=== PATIENT | female | born 1995 | race Caucasian/White ===

== ENCOUNTER 2021-03-31 11:28 | Observation (INO) | payer OTHER, SELFPAY ==
[2021-03-31] VITALS (12 sets, daily range): BP systolic 125–158; BP diastolic 68–102; PULSE 82–112; RESP 14–18; TEMP 36.2–37.1; O2SAT 98–100
--- NOTE | ~2021-03-31 | XR_ITS ---
EXAMINATION: XR chest 1V portable DATE: 03/31/2021 12:20 INDICATION: Syncope. TECHNIQUE: A single frontal view of the chest was obtained. COMPARISON: None. FINDINGS: The chest demonstrates clear lungs without pneumonia, pleural effusion, or pneumothorax. Th e heart size is normal. IMPRESSION: 1. No acute cardiopulmonary disease. Reviewed, dictated and finalized at location A.
--- NOTE | ~2021-03-31 | US_ITS ---
EXAMINATION: US carotid duplex BI EXAM DATE: 04/01/2021 12:09 INDICATION: Syncope, dizziness. TECHNIQUE: Grayscale, color and pulsed Doppler images of the cervical carotid arteries were obtained . The degree of vessel stenosis is placed in one of the following categories: normal, <50% stenosis, 50-69% stenosis, >=70% stenosis but less than near-occlusion, near-occlusion, or occlusion. Note that percent stenosis relative to normal distal artery lumen diameter is indirectly measured from velocit y measurements as described by Emanuel, et al. Radiology 2003; 229:340-346. There is no prior study fo r comparison. FINDINGS: RIGHT SIDE: Right common carotid artery peak systolic velocity (PSV in cm/s): 107 Right bulb/internal carotid artery peak systolic velocity (PSV in cm/s): 132 Right internal carotid artery end diastolic velocity (EDV in cm/s): 73 Right ICA/CCA peak systolic ratio: 1.2 Right external carotid artery peak systolic velocity (PSV in cm/s): 112 Right vertebral artery antegrade flow: yes There is no focal plaque identified. LEFT SIDE: Left common carotid artery peak systolic velocity (PSV in cm/s): 100 Left bulb/internal carotid artery peak systolic velocity (PSV in cm/s): 118 Left internal carotid artery end diastolic velocity (EDV in cm/s): 63 Left ICA/CCA peak systolic ratio: 1.2 Left external carotid artery peak systolic velocity (PSV in cm/s): 104 Left vertebral artery antegrade flow: yes There is no focal plaque identified. IMPRESSION: 1. Normal right internal carotid artery. 2. Normal left internal carotid artery. > Reviewed, dictated and finalized at location A.
--- NOTE | ~2021-03-31 | CT_ITS ---
EXAMINATION: CT brain wo con DATE: 03/31/2021 12:33 INDICATION: Unresponsive. Dizziness. TECHNIQUE: Computed tomography (CT) of the head was performed without intravenous contrast. The mA wa s adjusted according to patient size. Iterative reconstruction technique was employed. The dose-lengt h product was 681.00 mGy-cm. COMPARISON: None FINDINGS: There is no intracranial hemorrhage, acute infarction, or abnormal intracranial mass lesion . The ventricles are normal in size. There is mild mucosal thickening in the paranasal sinuses. The m astoid air cells are normal. The orbits are normal. IMPRESSION: 1. Normal brain. Reviewed, dictated and finalized at location A. IMPRESSION: 1. Normal brain.
--- NOTE | 2021-03-31 11:33 | ECG_ITS ---
Measurements Intervals [place] Rate: 79 P: 41 RI: 132 QRS: 15 QRSD: 82 T: 49 QT: 360 QTc: 414 Interpretive Statements SINUS RHYTHM WITH SINUS ARRHYTHMIA MINIMAL Q WAVES- HIGH LATERAL LEADS BORDERLINE ECG Electronically Signed On 03-31-2021 15:54:31 CDT by Gómez Moreno D.O.
--- NOTE | 2021-03-31 11:44 | PC.NURSE ---
patient declines IV placement at this time, patient request no IV unless absolutely necessary.
--- NOTE | 2021-03-31 12:17 | ED.GENADULT ---
HPI - General Adult General Chief complaint: Unspecified Stated complaint: unresponsive Time Seen by Provider: 03/31/21 12:03 Source: RN notes reviewed History of Present Illness HPI narrative: Patient presents emergency department from home for syncopal episode. Patient was sitting at work when she states she began to feel dizzy like the room was spinning states at that time she felt she is got passed out she took her pulse and was approximately 160 she states she sat on the floor and then per staff at her work she had approximately 5 to 6 minutes of going in and out of consciousness. Patient states that during this time she had no chest pain or shortness of breath she states she feels better this time but just feels tired she denies any current dizziness or lightheadedness she denies any abdominal pain nausea vomiting. Patient states she did have episodes of passing approximately 5 years ago and had a positive tilt table test at that time Related Data Home Medications Medication Instructions Recorded Confirmed bupropion HCl 300 mg PO QAM 03/31/21 03/31/21 Allergies Allergy/AdvReac Type Severity Reaction Status Date / Time cephalexin [From Keflex] Allergy Swelling Verified 03/31/21 11:31 of Lip/Tongue/Throat Review of Systems Review of Systems: Narrative: Gen.: Denies fevers or chills Eyes: Denies eye pain or visual change ENT: Denies congestion Respiratory: Denies shortness of breath CV: Denies chest pain reports palpitations and syncope GI: Denies abdominal pain nausea, emesis or diarrhea denies burning, urgency, frequency or hematuria Musculoskeletal: Denies back pain or muscle pain Neuro: Reports dizziness Skin: Denies rash Except as documented, all other systems reviewed and negative [facility] Past Medical History Medical History (Updated 03/31/21 @ 14:47 by Constantine Quiñonez DO) Patient denies significant medical history Social History Social History (Updated 03/31/21 @ 12:18 by Constantine Quiñonez DO) Smoking status: Never smoker Exam Narrative: Exam Narrative: APPEARANCE: No acute distress, nontoxic, resting in bed EYES: EOMI HEENT: Normocephalic, atraumatic, OMM RESPIRATORY: No respiratory distress Clear to auscultation bilaterally with no rhonchi wheezing or rales. CARDIOVASCULAR: Regular rate and rhythm without murmurs rubs or gallops. ABDOMINAL: Soft, nontender, nondistended, no rebound or guarding MUSCULOSKELETAl: Moves all extremities. No clubbing, cyanosis or edema. NEURO: Awake and alert x 4. Following commands, speech normal, no focal deficits SKIN:: Warm, dry. No rashes lesions or abrasions PSYCHIATRIC: Normal affect/mood, Course Course Emergency Course: Discussed with Lilian for Dr. Rush. Recommends admission at this time with cardiology consult Discussed with YOVANA Grover for Dr. Crooks presentation work-up agrees with admission at this time Discussed with patient and family results of workup and diagnosis. Discussed need for admission. Patient and family understand and agree to current treatment plan Vital Signs Vital signs: Vital Signs Temperature 97.8 F 03/31/21 11:26 Pulse Rate 90 03/31/21 11:26 Respiratory Rate 03/31/21 11:26 Blood Pressure 158/94 H 03/31/21 11:26 Pulse Oximetry 100 03/31/21 11:26 Temperature 97.8 F 03/31/21 11:26 Pulse Rate 85 03/31/21 14:36 Respiratory Rate 03/31/21 14:36 Blood Pressure 138/86 03/31/21 14:36 Pulse Oximetry 99 03/31/21 14:36 Medical Decision Making Vital Signs Vital Signs: Vital Signs Temperature 97.8 F 03/31/21 11:26 Pulse Rate 90 03/31/21 11:26 Respiratory Rate 03/31/21 11:26 Blood Pressure 158/94 H 03/31/21 11:26 Pulse Oximetry 100 03/31/21 11:26 Temperature 97.8 F 03/31/21 11:26 Pulse Rate 85 03/31/21 14:36 Respiratory Rate 03/31/21 14:36 Blood Pressure 138/86 03/31/21 14:36 Pulse Oximetry 99 03/31/21 14:36 Lab Data Res
[2021-03-31 12:28] LABS: Basophils Absolute Auto 0.1 K/mm3 (0.0-0.1); Basophils Percent Auto 0.4 % (0.2-1.2); Eosinophils Absolute Auto 0.1 K/mm3 (0-0.3); Hematocrit 40.9 % (37.0-47.0); Hemoglobin 13.1 g/dL (12.0-15.0); Immature Granulocyte Absolute 0.05 K/mm3 (0.00-0.031); Immature Granulocyte Percent A 0.4 % (0-0.5); Lymphocytes Absolute Auto 1.24 K/mm3 (0.9-3.2); Lymphocytes Percent Auto 9.6 % (18.3-44.2); Mean Corpuscular Hemoglobin 28.2 pg (26-34); Mean Corpuscular Volume 88.1 fl (80-100); Mean Platelet Volume 9.2 fl (7.4-10.4); Monocytes Absolute Auto 0.8 K/mm3 (0.1-0.6); Monocytes Percent Auto 5.9 % (2.6-8.5); Neutrophils Absolute Auto 10.7 K/mm3 (1.3-6.7); Neutrophils Percent Auto 82.7 % (45.5-73.1); Platelet Count Result 294 k/mm3 (150-375); Red Blood Count 4.64 M/mm3 (4.2-5.4); Red Cell Distribution Width 12.7 % (11.5-14.5)
[2021-03-31 12:36] LABS: Glucose Point of Care 100 mg/dl (65-105)
[2021-03-31 12:38] LABS: Alanine Aminotransferase 19 U/L (4-35); Albumin Level 4.5 g/dL (3.5-5.1); Alkaline Phosphatase 92 U/L (38-126); Anion Gap 9 mmol/L (8-16); Aspartate Amino Transferase 28 U/L (14-36); Bilirubin,Total 0.4 mg/dL (0.2-1.3); Blood Urea Nitrogen 7 mg/dL (7-17); Calcium 9.2 mg/dL (8.4-10.2); Carbon Dioxide 26 mmol/L (22-30); Chloride 101 mmol/L (98-107); Estimated CRCL calculation 109 ml/min; Estimated Glomerular Filt Rate > 60; Glucose 96 mg/dL (65-105); Potassium 4.2 mmol/L (3.4-5.0); Sodium 136 mmol/L (137-145)
--- NOTE | 2021-03-31 12:40 | PC.NURSE ---
Patient declines IV at this time, EDP aware.
--- NOTE | 2021-03-31 12:43 | PC.NURSE ---
Patient is unable to urinate at this time, declines straight cath. Patient will attempt again later.
[2021-03-31 12:49] LABS: Troponin I < 0.012 ng/mL (0.000-0.034)
[2021-03-31 14:00] LABS: Add Urine Microscopic? YES; Appearance Urine Cloudy (Clear); Bacteria Urine 2+ /hpf; Bilirubin Urine Negative (Negative); Blood Urine Negative (Negative); Color Urine Yellow (Yellow); Glucose Urine UA Negative (Negative); Ketones Urine Negative (Negative); Leukocyte Esterase Ur 1+ LEU/UL (Negative); Mucus Urine Rare /lpf; Nitrate Urine Negative (Negative); Protein Urine Negative (Negative); RBC Urine 0-2 /hpf (0-2); Specific Grav Ur 1.012 (1.001-1.035); Squamous Epithelial Cell Urine Many /hpf (Few); Transitional Epi Cells Urine Rare /hpf (None Seen); Urobilinogen Urine Negative mg/dL (<2.0)
[2021-03-31] MEDS: SODIUM CHLORIDE 0.9% IV 1,000 ML 999 ML IV CONT (14:32)
[2021-03-31] MEDS: NITROFURANTOIN MONOHYD MACROCR 100 MG CAP PO (14:34)
--- NOTE | 2021-03-31 16:18 | ADMGEN ---
This patient, Nadine Vance, was admitted to IMU Room 200-01. Patient/family oriented to hospital policies and general routines including ID bracelet, bed and alarms, visiting hours, pain management, procedures, bathroom and other care routines, personal items, smoking policy, room service/diet, and visiting hours. Information on how to activate the Rapid Response Team has been discussed. Patient/Family are encouraged to report perceived risks to care and to ask questions if they do not understand what they are told or what they should do.
--- NOTE | 2021-03-31 17:25 | PM.IMHP ---
H&P: HPI History of Present Illness Date/Time: 03/31/21 17:25 this is a 25-year-old female patient who has a past medical history of neuro cardiogenic syncope. The patient's last episode was approximately 5 years ago. The patient stated that her allergies have been affected her and she took NyQuil last night and DayQuil today. The patient stated that she did feel nauseated today as well as dizziness. The patient stated that she could not focus appropriately and she felt like she was going to pass out like she did in the past. The patient stated that she had a positive tilt-table test in the past and had orthostatic hypotension in the past. The patient was sitting on the floor at work when her coworkers checked her pulse they found that it was going in and out according to the patient's statement and that her heart rate went up to 160 at 1 point and then other times they were unable to feel her pulse. No CPR was performed. The cekx-bzr-dniejpl cold medicine was the only new medication for her. Head CT today was read as normal Brain. chest x-ray was read as no acute cardiopulmonary disease. White count was noted to be 13.0. Her urinalysis shows 1+ leukocyte Estrace many squamous epithelial cells and to urine bacteria. The patient stated this was not a clean catch. The patient was empirically started on Macrobid but she is not having any symptoms of UTI. Cultures were sent. Patient was Placed on Macrobid. EKG was read as sinus rhythm was sinus arrhythmia. Patient is being admitted to observation status on the date of service of 03/31/2021. Chief Complaint: Syncope Review of Systems Review of Systems: All systems reviewed & are unremarkable except as noted in HPI and below Constitutional: Constitutional: Reports as per HPI and Reports no additional constitutional complaints Eyes: Eyes: Reports as per HPI and Reports no additional eye complaints ENT: Reports system reviewed and no additional complaints, except as documented and Reports Normal hearing present Cardiovascular: Cardiovascular: Reports no additional cardiovascular complaints Respiratory: Respiratory: Reports no additional respiratory complaints and Reports no additional respiratory complaints Gastrointestinal: Gastrointestinal: Reports as per HPI and Reports no additional gastrointestinal complaints Musculoskeletal: Musculoskeletal: Reports no additional musculoskeletal complaints Integumentary/Breasts: Skin/Breast: Reports system reviewed and no additional complaints, except as docu and Reports as per HPI Neurologic: Reports system reviewed and no additional complaints, except as documented, Reports as per HPI and Reports Normal hearing present Psychiatric: Psychiatric: Reports no additional psychiatric complaints and Reports as per HPI Endocrine: Endocrine: Reports no additional endocrine complaints Hematologic/Lymphatic: Hematologic/Lymphatic: Reports no additional hematologic/lymphatic complaints Allergic/Immunologic: Allergic/Immunologic: Reports no additional allergic/immunologic complaints [facility] Past Medical History Medical History (Updated 03/31/21 @ 17:42 by Lenore Gonzalez NP) Depression with anxiety Neurocardiogenic syncope Orthostatic hypotension Patient denies significant medical history Surgical History Surgical History (Updated 03/31/21 @ 17:32 by Lenore Gonzalez NP) H/O foot surgery cyst removed from the heel Family History Family History (Updated 03/31/21 @ 17:32 by Lenore Gonzalez NP) Mother Acute myocardial infarction Grandparent Acute myocardial infarction Diabetes mellitus Father Hypertension Sibling Hypertension Social History Social History (Updated 03/31/21 @ 17:33 by Lenore Gonzalez NP) Social History: the patient has no children. Her mother is a durable power county attorney for healthcare. 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 She occasionally uses marijuana. She occasionally drinks an alcoholic beverage. She
[2021-03-31 18:47] LABS: Troponin I < 0.012 ng/mL (0.000-0.034)
[2021-03-31] MEDS: buPROPion HCL XL (24 HR) 150 MG TABCR 300 MG PO (19:52)
[2021-03-31 21:17] LABS: Troponin I < 0.012 ng/mL (0.000-0.034)
[2021-03-31] MEDS: diphenhydrAMINE HCl CAP 25 MG CAPSULE PO (23:17)
[2021-04-01] VITALS (9 sets, daily range): BP systolic 116–141; BP diastolic 71–90; PULSE 73–88; RESP 14–18; TEMP 36.3–37.1; O2SAT 99–100
--- NOTE | 2021-04-01 | ECHO_ITS ---
Patient Info Name: Nadine Vance Age: 25 years : 1995 Gender: Female Ht: 68 in Wt: 180 lbs BSA: 2.00 m2 HR: 96 bpm BP: 123 / 71 mmHg Heart Rhythm: Sinus Rhythm Technical Quality: Good Exam Date: 04/01/2021 8:48 AM Exam Location: [facility]monary Patient Status: Inpatient Admit Date: 03/31/2021 Staff Ordering Physician: Lenore Gonzalez NP Quality Control Chemist: Otis Montes RDCS, RT Attending Provider: Kapil Crooks MD Referring Physician: Lisa PAREDES; Exam Type: CA echo doppler color flow Study Info Indications R01.1 - Cardiac murmur, unspecified Complete two-dimensional, color flow and Doppler transthoracic echocardiogram is performed. Strain analysis performed. Summary 1. Complete two-dimensional, color flow and Doppler transthoracic echocardiogram is performed. 2. Left ventricular systolic function is normal, estimated at 60-65%. 3. Left ventricular chamber dimension is normal. 4. There is no increased left ventricular wall thickness. 5. The left ventricular diastolic function is normal. 6. Global longitudinal strain is normal at -19 %. 7. There is trace to mild tricuspid valve regurgitation. 8. No pulmonary hypertension, estimated pulmonary arterial systolic pressure is 26 mmHg. Left Ventricle Left ventricular chamber dimension is normal. Left ventricular systolic function is normal, estimated at 60-65%. There is no increased left ventricular wall thickness. The left ventricular diastolic function is normal. Global longitudinal strain is normal at -19 %. Right Ventricle Right ventricular chamber dimension is normal. Right ventricular systolic function is normal. Left Atria Left atrial chamber dimension is normal. Right Atria Right atrial chamber dimension is normal. Aortic Valve The aortic valve is trileaflet. There is no aortic valve stenosis. There is no aortic valve regurgitation. Pulmonic Valve The pulmonic valve is normal. There is trace pulmonic regurgitation. Mitral Valve The mitral valve has normal leaflets. There is trace to mild mitral valve regurgitation. Tricuspid Valve The tricuspid valve leaflets are normal. There is trace to mild tricuspid valve regurgitation. No pulmonary hypertension, estimated pulmonary arterial systolic pressure is 26 mmHg. Pericardium/Pleural The pericardium appears normal. There is no pericardial effusion. Inferior Vena Cava Normal inferior vena cava with >50% collapse upon inspiration consistent with normal right atrial pressure, 5 mmHg. Aorta The aortic root size at the sinus of Valsalva is normal. Left Ventricular Outflow Tract Name Value Normal LVOT 2D LVOT Diameter 2.0 cm LVOT Doppler LVOT Peak Gradient 4 mmHg LVOT Mean Gradient 2 mmHg LVOT VTI 18 cm LVOT VTI/AV VTI Ratio 0.8 LVOT Stroke Volume 56 ml LVOT CO 4.7 l/min LVOT CI 2.3 l/min/m2 Tricuspid Valve -------
[2021-04-01 05:19] LABS: Basophils Percent Auto 0.3 % (0.2-1.2); Eosinophils Absolute Auto 0.2 K/mm3 (0-0.3); Eosinophils Percent Auto 1.7 % (0-4.4); Hematocrit 37.4 % (37.0-47.0); Hemoglobin 11.9 g/dL (12.0-15.0); Immature Granulocyte Absolute 0.04 K/mm3 (0.00-0.031); Immature Granulocyte Percent A 0.3 % (0-0.5); Lymphocytes Absolute Auto 1.89 K/mm3 (0.9-3.2); Lymphocytes Percent Auto 16.2 % (18.3-44.2); Mean Corpuscular HGB Conc 31.8 g/dl (32-36); Mean Corpuscular Hemoglobin 28.4 pg (26-34); Mean Corpuscular Volume 89.3 fl (80-100); Mean Platelet Volume 9.5 fl (7.4-10.4); Monocytes Absolute Auto 0.7 K/mm3 (0.1-0.6); Monocytes Percent Auto 6.2 % (2.6-8.5); Neutrophils Absolute Auto 8.8 K/mm3 (1.3-6.7); Neutrophils Percent Auto 75.3 % (45.5-73.1); Platelet Count Result 282 k/mm3 (150-375); Red Blood Count 4.19 M/mm3 (4.2-5.4); Red Cell Distribution Width 12.7 % (11.5-14.5); White Blood Count 11.7 K/mm3 (4.5-10.0)
[2021-04-01 05:27] LABS: Anion Gap 6 mmol/L (8-16); Blood Urea Nitrogen 7 mg/dL (7-17); Calcium 9.1 mg/dL (8.4-10.2); Carbon Dioxide 27 mmol/L (22-30); Chloride 103 mmol/L (98-107); Estimated CRCL calculation 96 ml/min; Estimated Glomerular Filt Rate > 60; Glucose 99 mg/dL (65-105); Potassium 4.2 mmol/L (3.4-5.0); Sodium 136 mmol/L (137-145)
[2021-04-01] MEDS: FLUTICASONE PROPIONATE 0.05% NA SPR 16 GM BTL (*BKC) 2 SPRAY NASAL (10:28)
[2021-04-01] MEDS: ENOXAPARIN 40 MG/0.4 ML SYRINGE SUB-Q (10:28)
--- NOTE | 2021-04-01 14:26 | PM.CNCAR ---
Assessment and Plan Assessment and plan (1) Orthostatic hypotension: Code(s): I95.1 - Orthostatic hypotension Status: Chronic Assessment and Plan: Check orthostatic vital signs. If positive IV fluid for support. Very lengthy discussion held with the patient and her mother at bedside. All questions answered to their satisfaction. Essentially she has had a complete workup many years ago including a tilt-table test which apparently was positive with what sounds like vasodepressor syncope. Subsequently she was placed on midodrine which significantly improved her symptoms but then was discontinued 1 year later. She notes she was started on antihypertensive blood pressure medication in the past couple of years for which she took for 1 week did not tolerate well at all although admits she was on spring break drinking alcohol and probably significantly dehydrated and sleep-deprived. Nonetheless, she has been told her blood pressure has been elevated in the past but she has not been checking this on her own. She is aware of her heart beating more rapidly prior to these episodes which clinically sounds like a compensatory tachycardia as opposed to a causative SVT/ tachyarrhythmia. I do not suspect based on her history or description she has a bradyarrhythmia contributing to syncope. The etiology for her orthostatic symptoms remains unclear. Discussed at length further management and evaluation options. She wishes to avoid invasive evaluation such as a loop recorder at this time which I feel is very reasonable. We will pursue a 30 day engine monitor to correlate her symptoms, heart rate ranging response along with her blood pressure readings particularly when she is symptomatic. If she continues to have recurrent episodes and or intermittent hypotension or recurrent syncope we discussed resuming midodrine at a lower dose likely 2.5 mg 1st thing in the morning and midday. She does not wish to take this at this time. I have strongly encouraged her to push hydration, wear lower extremity compression stockings to her knees which she may remove at night. Ambulate with caution, rise slowly from seated position, avoid dehydration, extreme to temperature. Avoid DayQuil / NyQuil, caffeine which may contribute to dehydration. Patient and her mother verbalized understanding and agreed with plan of care. No indication for pacemaker and no other neurologic symptoms or evidence suggestive of seizure disorder. She does not report symptoms suggestive of autoimmune disease for other cause of gamaliel autonomic dysfunction. Symptoms do not appear to be highly suggestive of postural orthostatic tachycardia syndrome although this remains a consideration. We discussed received which remain hospitalized overnight apnea link would be reasonable to screen for undiagnosed RADHA, however, she is not reporting symptoms suggestive of clinically significant sleep apnea. At this time provided she is not significantly orthostatic and no other new concerns arise she may be discharged home from a cardiac perspective per hospitalist service. Spent 62 minutes at bedside with patient and her mother, chart review, and decision making. (2) Neurocardiogenic syncope: Code(s): R55 - Syncope and collapse Status: Chronic Assessment and Plan: As above. Treatment strategies discussed at length. (3) Tachycardia: Code(s): R00.0 - Tachycardia, unspecified Status: Acute Assessment and Plan: At this time on telemetry she is in sinus rhythm with intermittent sinus tachycardia which appears to be in normal compensatory response at this time. Thirty day engine monitor will be applied as an outpatient And follow-up in the office in 1 month. Recommendations to follow. She is to report to our office any new episodes, associated concerns or questions immediately. her EKG is normal. Her echocardiogram was unremarkable with normal LV function
--- NOTE | 2021-04-01 15:28 | PM.DS ---
DS: Admitting Diagnosis Admitting Diagnosis Admitting Diagnosis: Syncope DS: Discharge Diagnosis Discharge Diagnosis (1) Orthostatic hypotension: Code(s): I95.1 - Orthostatic hypotension Status: Chronic (2) Neurocardiogenic syncope: Code(s): R55 - Syncope and collapse Status: Chronic (3) UTI (urinary tract infection): Code(s): N39.0 - Urinary tract infection, site not specified Status: Acute Assessment and Plan: (4) Tachycardia: Code(s): R00.0 - Tachycardia, unspecified Status: Acute (5) Depression with anxiety: Code(s): F41.8 - Other specified anxiety disorders Status: Chronic DS: Summary Hospital Course Reason for hospitalization: 25yo female here for syncope. Please see H&P for details Hospital Course: 25yo female who presents with syncope. She has a hx of syncope with a positive tilt-table test in the past. The patient stated that she had an episode of syncope approximately 5 years ago and was found to have orthostasis. She was on midodrine in the past but able to be weaned off of this. She had her last syncopal episode a few months ago but she has these episodes of tachycardia frequently that do not end up causing syncope. The patient was found to have tachycardia where she worked and she laid down and had a syncopal episode. Vital signs were stable on admission. Labs unremarkable except for WBC 13K that improved on repeat felt to be demargination. Trop negative x 3. Patient was not having any symptoms of urinary tract infection and her urine sample more consistent with contaminated specimen. CXR clear, Brain CT negative, Carotid US normal and Echo showing EF 60%. EKG showing sinus rhythm with sinus arrhythmias with minimal Q waves in high lateral leads. The patient has been taking DayQuil and NyQuil recently. It was felt that patient still having some symptoms of hypotension with her symptoms made worse by the DayQuil and NyQuil. She was advised to stop taking these medications. Cardiology followed along. It was felt that she was not having tachy-arrhythmias causing her symptoms. Patient did well and was able to be discharged home on 04/04 Status at Discharge Cognitive/behavioral status at discharge: stable Time Spent with Patient Time attestation: Total time spent providing and/or coordinating discharge services: 34 minutes Time spent: Greater than 30 minutes Exam Narrative: Exam Narrative: AF 97.3 116/78 79 16 100% ra Gen - NARFD Chest - CTA bilaterally, nml RR CV- RRR S1/S2; Tele showing no significnat dysrhythmias Abd - soft, NT, ND +BS Ext - no edema Neuro - nonfocal Psych - nml mood and affect Skin - warm and dry DS: Data Data Completed and Pending Labs on day of discharge: Labs from last 24 hours 04/01/21 04/01/21 04/01/21 04:32 04:32 04:32 WBC 11.7 H RBC 4.19 L Hgb 11.9 L Hct 37.4 MCV 89.3 MCH 28.4 MCHC 31.8 L RDW 12.7 Plt Count 282 MPV 9.5 Immature Gran % (Auto) 0.3 Neut % (Auto) 75.3 H Lymph % (Auto) 16.2 L [place] % (Auto) 6.2 Eos % (Auto) 1.7 Baso % (Auto) 0.3 Lymph # (Auto) 1.89 [place] # (Auto) 0.7 H Eos # (Auto) 0.2 Baso # (Auto) 0.0 Abs Immat Gran (auto) 0.04 H Absolute Neuts (auto) 8.8 H Absolute Nucleated RBC 0.0 Nucleated RBC % 0.0 Sodium 136 L Potassium 4.2 Chloride 103 Carbon Dioxide 27 Anion Gap 6 L BUN 7 Creatinine 0.80 Estim Creat Clear Calc 96 Estimated GFR > 60 Glucose 99 Calcium 9.1 Magnesium 2.0 Troponin I TSH (Reflex) 1.520 03/31/21 03/31/21 20:41 17:48 WBC RBC Hgb Hct MCV MCH MCHC RDW Plt Count MPV Immature Gran % (Auto) Neut % (Auto) Lymph % (Auto) [place] % (Auto) Eos % (Auto) Baso % (Auto) Lymph # (Auto) [place] # (Auto) Eos # (Auto) Baso # (Auto) Abs Immat Gran (auto) Absolute Neuts (auto) Absolute
== END 2021-04-01 17:00 | disposition home or self-care (01) ==
LOC: ANHED 14:47 → ANHIMU 04-01 15:37
PROVIDERS: Nurse Practitioner; Admitting Provider Internal Medicine; Emergency Provider Emergency Medicine; Visit Provider Internal Medicine
DX: I95.1 Orthostatic hypotension (principal); N39.0 Urinary tract infection, site not specified; R00.0 Tachycardia, unspecified; R01.1 Cardiac murmur, unspecified; F41.8 Other specified anxiety disorders
CPT/HCPCS: 36415; 70450; 71045; 80048; 80053; 81001; 81025; 82948; 83735; 84443; 84484; 85025; 93005; 93306; 93880; 96360; 96372; 99285; A9270; G0378; J1650; J7030

== ENCOUNTER 2022-07-20 10:39 | Emergency (ER) | payer OTHER, BC, SELFPAY ==
--- NOTE | ~2022-07-20 | XR_ITS ---
EXAMINATION: XR chest 2V 07/20/2022 11:45 INDICATION: Cough and congestion PROCEDURE: 2 view chest COMPARISON: Comparison to multiple prior studies sequentially, with oldest reviewed study dated 03/31. FINDINGS: The lungs are clear. The cardiomediastinal silhouette is within normal limits. There are no pleural effusions. There is no pneumothorax suspected. IMPRESSION: 1: NO ACUTE CARDIOPULMONARY DISEASE. Reviewed, dictated and finalized at location A.
[2022-07-20 10:43] VITALS: BP 139/91; PULSE 92; RESP 18; TEMP 37.1; O2SAT 98
--- NOTE | 2022-07-20 10:53 | ECG_ITS ---
Measurements Intervals [place] Rate: 98 P: 43 MN: 132 QRS: 16 QRSD: 80 T: 53 QT: 341 QTc: 436 Interpretive Statements SINUS RHYTHM WITH SINUS ARRHYTHMIA MINIMAL Q WAVES- HIGH LATERAL LEADS BORDERLINE ECG COMPARED TO ECG 03/31/2021 11:32:09 NO SIGNIFICANT CHANGES Electronically Signed On 07-20-2022 11:05:09 CDT by Gómez Moreno D.O.
--- NOTE | 2022-07-20 10:55 | ED.SYNCOPE ---
HPI - Syncope General Chief Complaint: Syncope Stated Complaint: flu-like symptoms and syncopal episode Time Seen by Provider: 07/20/22 10:40 History of Present Illness HPI narrative: Patient is a 26-year-old female with a history of vasovagal syncope and POTS here for evaluation from urgent care for upper respiratory infectious symptoms for the past 3 days. Patient states that she has been congested, has had a productive cough, body aches and sore throat for the past 3 days. 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 Her flu and COVID test was negative at the urgent care, but apparently while she was going to get a chest x-ray, she had a syncopal episode and an ambulance was called. no head injury, patient denies LOC and is not amnestic to the event. Patient tells me that she has an extensive history of syncope flare ups when she is ill, and it is not atypical that she passed out today. She has seen cardiology, worn event monitors, had tilt table testing all of which were reassuring. She manages this with pushing fluids during illness. Denies chest pain, shortness of breath, leg swelling. Related Data Home Medications Medication Instructions Recorded Confirmed bupropion HCl 300 mg 24 hr tablet, 300 mg PO QAM 03/31/21 03/31/21 extended release Allergies Allergy/AdvReac Type Severity Reaction Status Date / Time cephalexin [From Keflex] Allergy Swelling Verified 07/20/22 10:47 of Lip/Tongue/Throat Review of Systems Review of Systems: Gen: Reports syncope. Denies fevers or chills Eyes: Denies eye pain or visual change ENT: Reports congestion Respiratory: Reports cough. Denies shortness of breath CV: Denies chest pain or palpitations GI: Denies abdominal pain nausea, emesis or diarrhea : denies burning, urgency, frequency or hematuria Musculoskeletal: Denies back pain or muscle pain Neuro: Denies numbness, tingling, weakness or focal weakness Skin: Denies rash Except as documented, all other systems reviewed and negative [facility] Past Medical History Medical History Depression with anxiety Neurocardiogenic syncope Orthostatic hypotension Patient denies significant medical history Surgical History Surgical History H/O foot surgery cyst removed from the heel Family History Family History Mother Acute myocardial infarction Grandparent Acute myocardial infarction Diabetes mellitus Father Hypertension Sibling Hypertension Social History Social History Social History: the patient has no children. Her mother is a durable power security police officer for healthcare. 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 She occasionally uses marijuana. She occasionally drinks an alcoholic beverage. She is a lifelong nonsmoker. She desires to be a full code. She has no children. Smoking status: Never smoker Alcohol intake: current Drinks per week: 1 Substance use: unknown Gender identity (if verbalized by the patient): Female Spiritual care concerns: No Exam Narrative: APPEARANCE: Well appearing, no pain in distress, well-nourished. Head: Normocephalic and atraumatic. EYES: PERRLA/EOMI, conjunctivae clear NOSE: No nasal drainage EARS: External ear normal in appearance THROAT: Oropharynx is clear. Mucous membranes are moist. NECK: Supple. No adenopathy, no masses. RESPIRATORY: Coughing throughout exam. Airway patent, respirations nonlabored. Clear to auscultation bilaterally, no rales, rhonchi, wheezing. CARDIOVASCULAR: Regular rate and rhythm without murmurs, rubs, or gallops. ABDOMINAL: Normoactive bowel sounds. Soft, nontender, nondistended. No rebound tenderness or guarding. MUSCULOSKELETAL: Extremities are warm and well-perfused. Moves all extremities well. No ed
[2022-07-20 11:03] VITALS: PULSE 100
[2022-07-20 11:23] LABS: Basophils Percent Auto 0.3 % (0.2-1.2); Eosinophils Absolute Auto 0.1 K/mm3 (0-0.3); Eosinophils Percent Auto 1.3 % (0-4.4); Hemoglobin 12.3 g/dL (12.0-15.0); Immature Granulocyte Absolute 0.02 K/mm3 (0.00-0.031); Immature Granulocyte Percent A 0.2 % (0-0.5); Lymphocytes Absolute Auto 1.25 K/mm3 (0.9-3.2); Lymphocytes Percent Auto 12.1 % (18.3-44.2); Mean Corpuscular HGB Conc 31.5 g/dl (32-36); Mean Corpuscular Hemoglobin 27.8 pg (26-34); Mean Platelet Volume 9.1 fl (7.4-10.4); Monocytes Absolute Auto 0.8 K/mm3 (0.1-0.6); Monocytes Percent Auto 7.7 % (2.6-8.5); Neutrophils Absolute Auto 8.1 K/mm3 (1.3-6.7); Neutrophils Percent Auto 78.4 % (45.5-73.1); Platelet Count Result 304 k/mm3 (150-375); Red Blood Count 4.43 M/mm3 (4.2-5.4); Red Cell Distribution Width 12.9 % (11.5-14.5); White Blood Count 10.4 K/mm3 (4.5-10.0)
[2022-07-20 11:31] LABS: Alanine Aminotransferase 22 U/L (6-35); Albumin Level 4.2 g/dL (3.5-5.1); Alkaline Phosphatase 84 U/L (38-126); Anion Gap 8 mmol/L (8-16); Aspartate Amino Transferase 23 U/L (14-36); Bilirubin,Total 0.2 mg/dL (0.2-1.3); Blood Urea Nitrogen 6 mg/dL (7-17); Calcium 8.4 mg/dL (8.4-10.2); Carbon Dioxide 29 mmol/L (22-30); Chloride 101 mmol/L (98-107); Estimated CRCL calculation 108 ml/min; Estimated Glomerular Filt Rate > 60; Glucose 109 mg/dL (65-110); Sodium 138 mmol/L (137-145)
[2022-07-20 12:59] VITALS: BP 121/70; PULSE 74
[2022-07-20 13:01] VITALS: BP 135/87; PULSE 95
[2022-07-20 13:03] VITALS: BP 117/85; PULSE 106
== END 2022-07-20 13:30 | disposition home or self-care (01) ==
PROVIDERS: Physician Assistant; Emergency Provider Emergency Medicine; PCP Family Medicine
DX: R55 Syncope and collapse (principal); F32.9 Major depressive disorder, single episode, unspecified; F41.9 Anxiety disorder, unspecified
CPT/HCPCS: 36415; 71046; 80053; 81025; 85025; 93005; 99283

== ENCOUNTER 2022-09-25 08:15 | Emergency (ER) | payer OTHER, BC, SELFPAY ==
--- NOTE | 2022-09-25 08:17 | ED.URI ---
HPI - URI/Sore Throat General Chief Complaint: Upper Respiratory Infection Stated Complaint: Cough/Sore Throat Time Seen by Provider: 09/25/22 08:16 Source: patient Mode of arrival: ambulatory Limitations: no limitations History of Present Illness HPI Narrative: Nadine is a 27-year-old female patient presenting to the clinic today with complaints of cough and a sore throat x1.5 weeks. She reports she just developed sore throat over the last day or two. No fever or chills. MD elicited complaint: cough, sore throat and nasal congestion Related Data Home Medications Medication Instructions Recorded Confirmed bupropion HCl 300 mg 24 hr tablet, 300 mg PO QAM 03/31/21 09/25/22 extended release Allergies Allergy/AdvReac Type Severity Reaction Status Date / Time cephalexin [From Keflex] Allergy Swelling Verified 09/25/22 08:26 of Lip/Tongue/Throat Review of Systems Review of Systems: Pertinent positives per HPI. Patient denies any fever, chills, rash, headache, visual changes, dizziness, shortness of breath, chest pain, palpitations, nausea, vomiting, diarrhea, constipation, abdominal pain, or any urinary issues. [facility] Past Medical History Medical History Depression with anxiety Neurocardiogenic syncope Orthostatic hypotension Patient denies significant medical history Surgical History Surgical History H/O foot surgery cyst removed from the heel Family History Family History Mother Acute myocardial infarction Grandparent Acute myocardial infarction Diabetes mellitus Father Hypertension Sibling Hypertension Social History Social History Social History: the patient has no children. Her mother is a durable power real estate associate attorney for healthcare. 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 She occasionally uses marijuana. She occasionally drinks an alcoholic beverage. She is a lifelong nonsmoker. She desires to be a full code. She has no children. Smoking status: Never smoker Alcohol intake: current Drinks per week: 1 Substance use: unknown Gender identity (if verbalized by the patient): Female Spiritual care concerns: No Comments At the time of my signature, I reviewed and agree with the nursing past medical, surgical, social, and family history. There is no relevant family history pertinent to the patient complaint. Exam Narrative: General: Well-developed, well nourished, in no apparent distress Head: Normocephalic, atraumatic Eyes: Pupils equally round and reactive to light bilaterally, EOM intact, sclera and conjunctive clear, no discharge, lids normal Ears: TMs intact and clear, ear canals clear, no drainage, grossly hearing normal. Nose: Nares patent, clear nasal discharge, moderate inflammation, no sinus tenderness. Mouth: Oral pharynx without lesions or masses, good dentition, MMM. postnasal drip Neck: Supple, trachea midline, no enlargement of anterior or posterior cervical nodes, no thyroid masses or goiter palpable. Cardio: Regular rate and rhythm, s1 and s2 normal, no murmur appreciated. Resp: Clear to auscultation bilaterally, no rhonchi, rales, wheezing or rubs Course Course Emergency Course: Portions of this record may have been created with voice recognition software. Level of Care: Express Care Visit Vital Signs Vital signs: Vital signs reviewed MDM - URI/Sore Throat MDM Narrative Medical decision making narrative: At the time of the patient is resting comfortably on the exam table. strep test was negative in the clinic today. Will send in prescription for prednisone. Supportive measures were discussed with the patient she voiced understanding of discharge instructions agrees to treatment plan. We will send s
[2022-09-25 08:26] VITALS: BP 146/85; PULSE 92; RESP 16; TEMP 36.7; O2SAT 99
[2022-09-25 08:33] VITALS: BP 146/85; PULSE 92; RESP 16; TEMP 36.7; O2SAT 99
== END 2022-09-25 08:44 | disposition home or self-care (01) ==
LOC: EXPCOLL 08:20
PROVIDERS: Emergency Provider Nurse Practitioner Family; PCP Family Medicine
DX: J06.9 Acute upper respiratory infection, unspecified (principal); R09.82 Postnasal drip; F41.8 Other specified anxiety disorders
CPT/HCPCS: 87081; 87880; 99213; G0463

== ENCOUNTER 2022-10-08 13:23 | Emergency (ER) | payer OTHER, BC, SELFPAY ==
--- NOTE | ~2022-10-08 | CT_ITS ---
EXAMINATION: CT brain wo con DATE: 10/08/2022 16:56 INDICATION: head injury . TECHNIQUE: Computed tomography (CT) of the head was performed with intravenous contrast. The mA was a djusted according to patient size. Iterative reconstruction technique was employed. The dose-length p roduct was 605.33 mGy-cm. COMPARISON: 03/31/2021. FINDINGS: No acute intracranial hemorrhage or extra-axial fluid collection. No hydrocephalus, mass, or herniation. No acute ischemic infarct. Unremarkable dural venous sinus attenuation. No acute osseous abnormality. The aerated spaces are clear. IMPRESSION: No acute intracranial process. Reviewed, dictated and finalized at location K. FINISHER TAILOR
--- NOTE | ~2022-10-08 | CT_ITS ---
EXAMINATION: CT cervical spine wo con DATE: 10/08/2022 16:56 INDICATION: head injury, neck pain TECHNIQUE: Computed tomography (CT) of the cervical spine was performed without intravenous contrast. Automated exposure control and iterative reconstruction technique were employed. The dose-length pro duct was 343.10 mGy-cm. COMPARISON: None. FINDINGS: Vertebral Body Alignment: Intact. Reversed lordosis, centered at C5. Craniocervical and atlantoaxial alignment: Minimal degenerative change. Alignment intact. Osseous structures/fracture: No evidence of a lytic or blastic process in the visualized spine. No e vidence of acute fracture. Chronic appearing calcific/ossific body adjacent to the left C5-6 facet wh ich may represent soft tissue or capsular calcification/ossification. Cervical soft tissues: The paraspinal soft tissues planes are maintained. Degenerative changes: No significant degenerative changes. IMPRESSION: No acute fracture or traumatic malalignment in the cervical spine Reviewed, dictated and finalized at location K. MP PICKER
[2022-10-08 14:05] VITALS: BP 145/96; PULSE 100; RESP 18; TEMP 36.8; O2SAT 97
[2022-10-08 16:05] VITALS: BP 136/95; PULSE 87; RESP 18; O2SAT 100
--- NOTE | 2022-10-08 16:28 | ED.HEATRA ---
HPI - Head Injury General Chief complaint: Head Injury Stated complaint: syncope on , hit head Time Seen by Provider: 10/08/22 15:57 Source: patient Mode of arrival: ambulatory Limitations: no limitations History of Present Illness HPI Narrative: This is a 27 year old female that presents to the ER for head injury sustained 2 days ago. Reports she was blowing up a balloon. She started to feel lightheaded and passed out. She hit the back of her head on the floor. Since she has been having headaches and nausea. Also reports neck pain. Reports longstanding history of syncope for which she has been evaluated and follows with a communications analyst. This was not anything new or different for her. Denies visual changes, vomiting, numbness, or weakness. Related Data Home Medications Medication Instructions Recorded Confirmed bupropion HCl 300 mg 24 hr tablet, 300 mg PO QAM 03/31/21 09/25/22 extended release Allergies Allergy/AdvReac Type Severity Reaction Status Date / Time cephalexin [From Keflex] Allergy Swelling Verified 09/25/22 08:26 of Lip/Tongue/Throat Review of Systems Review of Systems: CONSTITUTIONAL: Denies fever EYES: Denies visual changes GASTROINTESTINAL: Denies vomiting MUSCULOSKELETAL: Denies back pain NEUROLOGIC: Reports headache. Denies numbness, or weakness. All systems reviewed & are unremarkable except as noted in HPI and below PMFSH Past Medical History Medical History Depression with anxiety Neurocardiogenic syncope Orthostatic hypotension Patient denies significant medical history Surgical History Surgical History H/O foot surgery cyst removed from the heel Family History Family History Mother Acute myocardial infarction Grandparent Acute myocardial infarction Diabetes mellitus Father Hypertension Sibling Hypertension Social History Social History Social History: the patient has no children. Her mother is a durable power stucco mason for healthcare. 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 She occasionally uses marijuana. She occasionally drinks an alcoholic beverage. She is a lifelong nonsmoker. She desires to be a full code. She has no children. Smoking status: Never smoker Alcohol intake: current Drinks per week: 1 Substance use: unknown Gender identity (if verbalized by the patient): Female Spiritual care concerns: No Exam Narrative: GENERAL: Well-appearing, well-nourished, and in no acute distress. HEAD: Normocephalic, atraumatic. EYES: PERRLA and EOMI. ENT: Nares clear, no rhinorrhea or epistaxis. Mucous membranes moist. Oropharynx without tonsillar hypertrophy exudate or other lesions. Bilateral TMs pearly grubbs non-bulging NECK: Supple. No adenopathy or masses. Tender to palpation of midline cervical spine CHEST: Clear to auscultation. No respiratory distress. No wheezes rales or rhonchi HEART: Regular rate and rhythm. No murmur heard. Normal peripheral pulses. BACK: No midline thoracic or lumbar spine tenderness EXTREMITIES: Normal range of motion. No edema or obvious deformity. Strength equal in bilateral upper and lower extremities (5/5) SKIN: Warm, dry, no rash. NEURO: No focal deficits. Alert and oriented x3. Cranial nerves II through XII grossly intact PSYCH: Normal mood and affect Course Course Emergency Course: Patient updated on workup and agrees with plan of care Vital Signs Vital signs: Vital Signs Temperature 98.3 F 10/08/22 14:05 Pulse Rate 100 10/08/22 14:05 Respiratory Rate 18 10/08/22 14:05 Blood Pressure 145/96 H 10/08/22 14:05 Pulse Oximetry 97 10/08/22 14:05 Oxygen Delivery Room Air 10/08/22 14:05 Temperature 98.3 F 10/08/22 14:05 Pulse Rate 8
[2022-10-08 18:10] VITALS: BP 137/81; PULSE 94; RESP 21; O2SAT 96
== END 2022-10-08 18:11 | disposition home or self-care (01) ==
PROVIDERS: Emergency Provider Physician Assistant; PCP Family Medicine
DX: S09.90XA Unspecified injury of head, initial encounter (principal); R55 Syncope and collapse; F41.8 Other specified anxiety disorders; W18.39XA Other fall on same level, initial encounter
CPT/HCPCS: 70450; 72125; 99284

== ENCOUNTER 2023-02-02 14:01 | Emergency (ER) | payer OTHER, BC, SELFPAY ==
[2023-02-02 14:15] VITALS: BP 155/98; PULSE 98; RESP 16; TEMP 36.8; O2SAT 99
--- NOTE | 2023-02-02 14:36 | ED.GENADULT ---
HPI - General Adult General Chief complaint: Upper Respiratory Infection Stated complaint: Sore Throat Time Seen by Provider: 02/02/23 14:36 Source: patient, RN notes reviewed and old records reviewed Mode of arrival: ambulatory Limitations: no limitations History of Present Illness HPI narrative: 27-year-old female presents to [facility] complaints was sore throat for the last couple days Sore throat worse today. Related Data Home Medications Medication Instructions Recorded Confirmed bupropion HCl 300 mg 24 hr tablet, 300 mg PO QAM 03/31/21 09/25/22 extended release Allergies Allergy/AdvReac Type Severity Reaction Status Date / Time cephalexin [From Keflex] Allergy Swelling Verified 02/02/23 14:22 of Lip/Tongue/Throat Review of Systems Review of Systems: All systems reviewed & are unremarkable except as noted in HPI and below Constitutional: Constitutional: Reports no additional constitutional complaints Eyes: Eyes: Reports no additional eye complaints ENT: Reports as per HPI and Reports sore throat Cardiovascular: Cardiovascular: Reports no additional cardiovascular complaints, Denies chest pain and Denies dyspnea Respiratory: Respiratory: Reports no additional respiratory complaints, Denies chest congestion, Denies cough and Denies dyspnea Gastrointestinal: Gastrointestinal: Reports no additional gastrointestinal complaints, Denies abdominal pain, Denies nausea and Denies vomiting Musculoskeletal: Musculoskeletal: Reports no additional musculoskeletal complaints Integumentary/Breasts: Skin/Breast: Reports system reviewed and no additional complaints, except as docu Neurologic: Reports system reviewed and no additional complaints, except as documented Psychiatric: Psychiatric: Reports no additional psychiatric complaints Allergic/Immunologic: Allergic/Immunologic: Reports no additional allergic/immunologic complaints [facility] Past Medical History Medical History Depression with anxiety Neurocardiogenic syncope Orthostatic hypotension Patient denies significant medical history Surgical History Surgical History H/O foot surgery cyst removed from the heel Family History Family History Mother Acute myocardial infarction Grandparent Acute myocardial infarction Diabetes mellitus Father Hypertension Sibling Hypertension Social History Social History Social History: the patient has no children. Her mother is a durable power pack press operator for healthcare. 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 She occasionally uses marijuana. She occasionally drinks an alcoholic beverage. She is a lifelong nonsmoker. She desires to be a full code. She has no children. Smoking status: Never smoker Alcohol intake: current Drinks per week: 1 Substance use: unknown Gender identity (if verbalized by the patient): Female Spiritual care concerns: No Comments At the time of my signature, I reviewed and agree with the nursing past medical, surgical, social, and family history. There is no relevant family history pertinent to the patient complaint. Exam Const: General: cooperative, healthy appearing, comfortable, no acute distress, well developed, alert and well nourished Nutritional Appearance: well nourished Orientation/consciousness: patient oriented x3 Limitations: no limitations HENMT: Head: normal to inspection Ears: hearing grossly normal bilaterally and external ears normal Face/Nose/Sinus: Normal external nose present, Normal nares present, Normal nasal mucous membranes and turbinates present and normal facial exam Face and sinus: normal facial exam Mouth: Yes Normal oral and palatal mucosa present, Yes lip normal and Yes moist mucous membranes Throat: posterior oropha
== END 2023-02-02 14:50 | disposition home or self-care (01) ==
PROVIDERS: Emergency Provider Nurse Practitioner; PCP Family Medicine
DX: J02.0 Streptococcal pharyngitis (principal); F41.8 Other specified anxiety disorders
CPT/HCPCS: 87880; 99213; G0463

== ENCOUNTER 2024-04-15 17:05 | Emergency (ER) | payer OTHER, SELFPAY ==
[2024-04-15 17:13] VITALS: BP 129/85; PULSE 78; RESP 16; TEMP 37; O2SAT 100
--- NOTE | 2024-04-15 17:21 | ED.EAR ---
HPI - Ear Problem General Chief complaint: Ear Stated complaint: Right Ear Irritation Time Seen by Provider: 04/15/24 17:21 Source: patient, RN notes reviewed and old records reviewed Mode of arrival: ambulatory Limitations: no limitations History of Present Illness HPI Narrative: Patient presents to [facility] with complaints of right ear pain that has been present for 2 days. She reports that she gets repetitive ear infections in this ear, often times has ruptures. She denies any injury or trauma. She does report some nasal congestion. She denies any fever, chills, sweats. She has been taking ibuprofen for her symptoms with moderate relief. She voices no other concerns or complaints at this time Related Data Home Medications Medication Instructions Recorded Confirmed bupropion HCl 300 mg 24 hr tablet, 300 mg PO DAILY 04/15/24 04/15/24 extended release clindamycin phosphate 1 % topical 1 applic topical BID 04/15/24 04/15/24 gel sertraline 100 mg tablet 100 mg PO DAILY 04/15/24 04/15/24 Allergies Allergy/AdvReac Type Severity Reaction Status Date / Time cephalexin [From Keflex] Allergy Swelling Verified 04/15/24 17:09 of Lip/Tongue/Throat Review of Systems Review of Systems: All systems reviewed & are unremarkable except as noted in HPI and below Constitutional: Constitutional: Reports no additional constitutional complaints ENT: Reports system reviewed and no additional complaints, except as documented and Reports as per HPI Cardiovascular: Cardiovascular: Reports no additional cardiovascular complaints Respiratory: Respiratory: Reports no additional respiratory complaints Gastrointestinal: Gastrointestinal: Reports no additional gastrointestinal complaints [facility] Past Medical History Medical History Depression with anxiety Neurocardiogenic syncope Orthostatic hypotension Patient denies significant medical history Surgical History Surgical History H/O foot surgery cyst removed from the heel Family History Family History Mother Acute myocardial infarction Grandparent Acute myocardial infarction Diabetes mellitus Father Hypertension Sibling Hypertension Social History Social History Social History: the patient has no children. Her mother is a durable power criminal defense attorney for healthcare. 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 She occasionally uses marijuana. She occasionally drinks an alcoholic beverage. She is a lifelong nonsmoker. She desires to be a full code. She has no children. Smoking status: Never smoker Alcohol intake: current Drinks per week: 1 Substance use: unknown Gender identity (if verbalized by the patient): Female Spiritual care concerns: No Exam Const: General: cooperative, no acute distress, alert and awake Orientation/consciousness: oriented to person, oriented to place and oriented to time HENMT: Head: normal to inspection Ears: TM normal on the left and TM abnormal bulging, erythematous and with loss of landmarks Throat: posterior oropharynx normal and tonsils normal Resp: Effort & Inspection: normal respiratory effort and able to speak in complete sentences Auscultation: clear to auscultation bilaterally, no crackles, no rales, no rhonchi and no wheezes Cardio: Palpation: normal PMI Rate: regular rate Rhythm: regular rhythm Heart sounds: S1 normal heart sound present and S2 normal heart sound present Neuro: General: oriented to person, oriented to place and oriented to time Cranial nerves: Yes CN's II-XII intact bilaterally Psych: Appearance: grossly normal Thought process: Normal thought process present Insight: Good insight present (Psych) Judgement: Good judgement present (Psych) Course Course Level of Care
== END 2024-04-15 17:28 | disposition home or self-care (01) ==
PROVIDERS: Emergency Provider Nurse Practitioner Family; PCP Family Medicine
DX: H66.001 Acute suppurative otitis media without spontaneous rupture of ear drum, right ear (principal); F41.8 Other specified anxiety disorders
CPT/HCPCS: 99213; G0463

== ENCOUNTER 2024-08-17 11:59 | Emergency (ER) | payer OTHER, SELFPAY ==
--- NOTE | 2024-08-17 12:03 | ED_ITS ---
HPI - Ear Problem General Chief complaint: Ear Stated complaint: EARACHE Time Seen by Provider: 08/17/24 12:01 Source: patient Mode of arrival: ambulatory Limitations: no limitations History of Present Illness HPI Narrative: Nadine is a 28-year-old female patient presenting to the clinic today with complaints of bilateral ear pain, cough, nasal congestion, and sore throat she. She reports that she just finished up amoxicillin 2 days ago for a bilateral ear infection. Has a nonproductive cough and feels as though her head is congested. Related Data Home Medications Medication Instructions Recorded Confirmed bupropion HCl 300 mg 24 hr tablet, 300 mg PO DAILY 04/15/24 08/17/24 extended release sertraline 100 mg tablet 100 mg PO DAILY 04/15/24 08/17/24 Allergies Allergy/AdvReac Type Severity Reaction Status Date / Time cephalexin [From Keflex] Allergy Swelling Verified 08/17/24 12:15 of Lip/Tongue/Throat Review of Systems Review of Systems: Pertinent positives per HPI. Patient denies any fever, chills, rash, headache, visual changes, dizziness, shortness of breath, chest pain, palpitations, nausea, vomiting, diarrhea, constipation, abdominal pain, or any urinary issues. [facility] Past Medical History Medical History Depression with anxiety Neurocardiogenic syncope Orthostatic hypotension Patient denies significant medical history Surgical History Surgical History H/O foot surgery cyst removed from the heel Family History Family History Mother Acute myocardial infarction Grandparent Acute myocardial infarction Diabetes mellitus Father Hypertension Sibling Hypertension Social History Social History Social History: the patient has no children. Her mother is a durable power divorce attorney for healthcare. 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 She occasionally uses marijuana. She occasionally drinks an alcoholic beverage. She is a lifelong nonsmoker. She desires to be a full code. She has no children. Smoking status: Never smoker Alcohol intake: current Drinks per week: 1 Substance use: unknown Gender identity (if verbalized by the patient): Female Spiritual care concerns: No Comments At the time of my signature, I reviewed and agree with the nursing past medical, surgical, social, and family history. There is no relevant family history pertinent to the patient complaint. Exam Narrative: General: Well-developed, well nourished, in no apparent distress Head: Normocephalic, atraumatic Eyes: Pupils equally round and reactive to light bilaterally, EOM intact, sclera and conjunctive clear, no discharge, lids normal Ears: TMs intact and congested, ear canals clear, no drainage, grossly hearing normal. Nose: Nares patent, clear nasal discharge, moderate inflammation, no sinus tenderness. Mouth: Oral pharynx without lesions or masses, good dentition, MMM. Postnasal drip Neck: Supple, trachea midline, no enlargement of anterior or posterior cervical nodes, no thyroid masses or goiter palpable. Cardio: Regular rate and rhythm, s1 and s2 normal, no murmur appreciated. Resp: Clear to auscultation bilaterally, no rhonchi, rales, wheezing or rubs Course Course Emergency Course: Portions of this record may have been created with voice recognition software. Level of Care: Express Care Visit Vital Signs Vital signs: Vital Signs Temperature 36.4 C 08/17/24 12:09 Pulse Rate 86 08/17/24 12:09 Respiratory Rate 16 08/17/24 12:09 Blood Pressure 132/88 08/17/24 12:09 Pulse Oximetry 99 08/17/24 12:09 Temperature 36.4 C 08/17/24 12:09 Pulse Rate 86 08/17/24 12:09 Respiratory Rate 16 08/17/24 12:09 Blood Pressure 132/88 08/17/24 12:09 Pulse Oximetry 99 08/17/24 12:09 Vital signs reviewed Medical Decision Making MDM Narrative Medical decision making narrative: At the time of visit patient is resting comfortably on the exam table. Patient appears to be nontoxic. Plan: I suspect patient has URI with cough and congestion. Prescription for prednisone was sent to the pharmacy. No sign of bacterial infection. Supportive measures were discussed with the patient and they voiced understanding discharge instructions and agrees to treatment plan. Return precautions reviewed Differential Diagnosis Differential Diagnosis: Otitis media, otitis externa, eustachian tube dysfunction, cerumen impaction, upper respiratory infection, serous otitis Vital Signs Vital Signs: Vital Signs Temperature 36.4 C 08/17/24 12:09 Pulse Rate 86 08/17/24 12:09 Respiratory Rate 16 08/17/24 12:09 Blood Pressure 132/88 08/17/24 12:09 Pulse Oximetry 99 08/17/24 12:09 Temperature 36.4 C 08/17/24 12:09 Pulse Rate 86 08/17/24 12:09 Respiratory Rate 16 08/17/24 12:09 Blood Pressure 132/88 08/17/24 12:09 Pulse Oximetry 99 08/17/24 12:09 Discharge Plan Discharge Clinical Impression: URI with cough and congestion Pharyngitis Qualifiers: Pharyngitis/tonsillitis etiology: unspecified etiology Qualified Code(s): J02.9 - Acute pharyngitis, unspecified Patient Disposition: Home, Self-Care Condition: Stable Instructions: Antibiotic Form, Pharyngitis (ED), Upper Respiratory Infection (ED) Additional Instructions: Strep test was negative in the clinic today. We will send for culture if this comes back positive we will contact you in place you on antibiotics at that time Take prescription medications only as prescribed-prednisone Increase fluids and stay well hydrated Tylenol/motrin for pain/fever Flonase and OTC antihistamines as directed Vicks vapor rub to open sinuses Sinus rinses for congestion Cepacol spray, cough drops, throat lozenges, warm tea with honey/lemon, gargle salt water to soothe throat BRAT diet for diarrhea Clear liquids x 24 hours then advance as tolerated for nausea/vomiting Go to the ED if you develop a worsening in your condition- high fever not controlled by Tylenol or Motrin, dehydration, weakness, lethargy, shortness of breath, or chest pain. Follow up with your PCP in 3-5 days if symptoms persist. Prescriptions: New prednisone 20 mg tablet 40 mg PO DAILY 5 Days Qty: 10 0RF No Action sertraline 100 mg tablet 100 mg PO DAILY bupropion HCl 300 mg tablet extended release 24 hr 300 mg PO DAILY Follow-up/Referrals: UNKNOWN,DOCTOR [Non-Staff] - Quality NIHSS Nursing Documentation ED NIHSS nursing documentation: reviewed/agree
[2024-08-17 12:09] VITALS: BP 132/88; PULSE 86; RESP 16; TEMP 36.4; O2SAT 99
[2024-08-17 12:33] LABS: EDSTREPNEGPOS1 Negative (Negative)
== END 2024-08-17 12:38 | disposition home or self-care (01) ==
PROVIDERS: Emergency Provider Nurse Practitioner Family
DX: J06.9 Acute upper respiratory infection, unspecified (principal); R05.9 Cough, unspecified; J02.9 Acute pharyngitis, unspecified; F41.8 Other specified anxiety disorders
CPT/HCPCS: 87081; 87880; 99213; G0463

== ENCOUNTER 2024-09-12 08:59 | Emergency (ER) | payer OTHER, SELFPAY ==
--- NOTE | ~2024-09-12 | XR_ITS ---
EXAMINATION: XR chest 2V DATE: 09/12/2024 10:19 INDICATION: Acute cough. TECHNIQUE: Frontal and lateral views of the chest were obtained. COMPARISON: Chest 2 views 07/20/2022 FINDINGS: There are airspace opacities in left mid and and lower lung zones. No pleural effusion or p neumothorax. The heart size is normal. IMPRESSION: 1. Mild airspace opacities in left mid and lower lung zones, consistent with pneumonia. Reviewed, dictated and finalized at location A. INE TURNER IMPRESSION: 1. Mild airspace opacities in left mid and lower lung zones, consistent with pn eumonia.
[2024-09-12 09:11] VITALS: BP 137/90; PULSE 92; RESP 16; TEMP 36.6; O2SAT 100
--- NOTE | 2024-09-12 10:06 | ED_ITS ---
HPI - URI/Sore Throat General Chief Complaint: Upper Respiratory Infection Stated Complaint: Cough/Chest Congestion Time Seen by Provider: 09/12/24 10:00 Source: patient, RN notes reviewed and old records reviewed Mode of arrival: ambulatory Limitations: no limitations History of Present Illness HPI Narrative: 28 year old female who presents to [facility] care with complaints of having acute cough for the past 4 days with no known fevers. She states that she was visiting family and though it was initially allergy to cat but no watery eyes. Patient reports that she had flu and then ear infection in July and was treated with Augmentin and then had URI symptoms in first part of August and received ome Prednisone and was feeling better till past 4 days. Patient reports that she has noted some wheezing denies any shortness of breath but persistant cough. MD elicited complaint: cough Pertinent past history: seasonal allergies and other (recent flu and ear infection and URI symptoms in past 6 weeks) Onset (ago): day(s) (4) Severity: moderate Able to tolerate fluids by mouth: Yes Treatments prior to arrival: none Related Data Home Medications ?Medication ?Instructions ?Recorded ?Confirmed ?Last Taken ?Type bupropion HCl 300 mg 24 hr tablet, 300 mg PO DAILY 04/15/24 08/17/24 Unknown History extended release sertraline 100 mg tablet 100 mg PO DAILY 04/15/24 08/17/24 Unknown History clindamycin phosphate 1 % topical topical 09/12/24 Unknown History gel rosuvastatin 20 mg tablet mg 09/12/24 Unknown History Allergies Allergy/AdvReac Type Severity Reaction Status Date / Time cephalexin (From Keflex) Allergy Swelling Verified 09/12/24 09:57 of Lip/Tongue/Throat Review of Systems Review of Systems: CONSTITUTIONAL: Denies malaise, chills, sweats, or fever. EYES: Denies visual changes, redness, or discharge. ENT: Reports rhinorrhea, congestion,no sinus pain, no otalgia and nosore throat. CARDIOVASCULAR: Denies chest pain, palpitations, or edema. RESPIRATORY: Reports cough.? Denies dyspnea. GASTROINTESTINAL: Denies abdominal pain, nausea, vomiting, diarrhea SKIN: Denies rash or itching. MUSCULOSKELETAL: Denies myalgia. NEUROLOGIC: Denies headache. All systems reviewed & are unremarkable except as noted in HPI and below PMFSH Past Medical History Medical History Otitis media Seasonal allergies Depression with anxiety Orthostatic hypotension Neurocardiogenic syncope Patient denies significant medical history Surgical History Surgical History H/O foot surgery cyst removed from the heel Family History Family History Mother Acute myocardial infarction Grandparent Acute myocardial infarction Diabetes mellitus Father Hypertension Sibling Hypertension Social History Social History Social History: the patient has no children. Her mother is a durable power personal injury attorney for healthcare. 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 She occasionally uses marijuana. She occasionally drinks an alcoholic beverage. She is a lifelong nonsmoker. She desires to be a full code. She has no children. Smoking status: Never smoker Alcohol intake: current Drinks per week: 1 Substance use: unknown Gender identity (if verbalized by the patient): Female Spiritual care concerns: No Comments At time of signature, agree with nursing past medical, surgical, social and family history. There is no relevant family history pertinent to the presenting complaint Exam Narrative: GENERAL: Well-appearing, well-nourished, and in no acute distress. HEAD: Normocephalic EYES: PERRLA, conjunctivae clear ENT: Nares clear, turbinates edematous and erythematous, clear discharge. Mucous membranes moist. TM pearly grubbs with dull light reflex bilaterally; no tragal tenderness. Oropharynx erythematous without lesions. Tonsils not enlarged and without exudate, no drooling, no hoarseness, no trismus, uvula midline.post nasal drainage NECK: Supple. No lymphadenopathy CHEST: scattered wheezes rhonchi left lung base on auscultation, breath sounds equal.+ wheezing, +rhonchi,no rales, or stridor. No respiratory distress, speaks in full sentences, frequent cough harsh rare productiveSAO2 100% on room air HEART: Regular rate and rhythm. No murmur heard. SKIN: Warm, dry, no rash. NEURO: Alert and oriented x3. PSYCH: Normal mood and affect Course Course Emergency Course: Patient is aware of diagnosis, understands and agrees to treatment plan.? Anticipatory guidance given.? Patient agrees to follow-up as directed and is aware of reasons to seek care at the emergency department. Portions of this record may have been created with voice recognition software Level of Care: Express Care Visit Vital Signs Vital signs: Vital Signs Temperature 36.6 C 09/12/24 09:11 Pulse Rate 92 09/12/24 09:11 Respiratory Rate 16 09/12/24 09:11 Blood Pressure 137/90 09/12/24 09:11 Pulse Oximetry 100 09/12/24 09:11 Temperature 36.6 C 09/12/24 09:11 Pulse Rate 92 09/12/24 09:11 Respiratory Rate 16 09/12/24 09:11 Blood Pressure 137/90 09/12/24 09:11 Pulse Oximetry 100 09/12/24 09:11 Oxygen Delivery Room Air 09/12/24 09:50 Reviewed MDM - URI/Sore Throat MDM Narrative Medical decision making narrative: Differential diagnosis considered: Rodriguez virus, strep pharyngitis, allergic rhinitis, upper respiratory tract infection, sinusitis, rhinosinusitis, nasopharyngitis. viral pharyngitis, otitis media, otitis externa, pneumonia, bronchitis, viral cough syndrome, viral syndrome, and influenza.? Exam findings show no acute concerns or changes; patient is non-toxic appearing and is in no distress.? Patient is appropriate for outpatient treatment and follow-up. Differential Diagnosis Differential diagnosis: Likely upper respiratory infection, sinusitis, viral infection, bronchitis and other (acute cough and pneumonia left lung fowler) Medical Records Attestation: I reviewed the patient's medical records. Lab Data Attestation: I reviewed the patient's lab results. Imaging Data Attestation: I personally reviewed and interpreted this imaging study as follows: My impression: opacities in left lower and mid lobe region consistent with pneumonia Radiologist's impression: [facility] [address] [facility] [place] [address] XRay Report Signed Patient: Nadine Vance : 1995 MR#: [id number] Age: 28 Acct:[id number] Loc: [facility] ADM Date: 09/12/24Attending Dr: Ordering Physician: Kassi Enriquez APRN Date of Service: 12/27/24 Procedure(s): XR chest 2V Accession Number(s): [id number] cc: CHIMNEY SWEEPER PHYSICIAN; Kassi Enriquez APRN~ EXAMINATION: XR chest 2V DATE: 09/12/2024 10:19 INDICATION: Acute cough. TECHNIQUE: Frontal and lateral views of the chest were obtained. COMPARISON: Chest 2 views 07/20/2022 FINDINGS: There are airspace opacities in left mid and and lower lung zones. No pleural effusion or pneumothorax. The heart size is normal. IMPRESSION: 1. Mild airspace opacities in left mid and lower lung zones, consistent with pneumonia. Reviewed, dictated and finalized at location A. CAL APPLIANCE MAKER Dictated By: Jordi Schumacher MD 09/12/24 1023 Signed By: <Electronically signed by Jordi Schumacher MD in OV> Critical Care Time Critical Care Time Critical Care Time: No Discharge Plan Discharge Clinical Impression: Pneumonia Qualifiers: Pneumonia type: due to unspecified organism Laterality: left Lung location: lower lobe of lung Qualified Code(s): J18.9 - Pneumonia, unspecified organism Patient Disposition: Home, Self-Care Condition: Stable Instructions: Antibiotic Form, Pneumonia (ED) Additional Instructions: Increase fluids especially juices and water [id number] cough and cold medicine of your choice for your symptoms Zyrtec Claritin or Shabnam daily include Coricidin brand decongestant Continue your inhaler/nebulizer as directed Steroids as directed--take with food heat to the face 20-30 minutes 4-6 times a day for pain Salt water gargles, throat lozenges or throat sprays as desired Antibiotic as directed--finished the medication If your symptoms persist, change or worsen significantly before you can contact your personal physician then please, without delay, go to the emergency department for further evaluation. Follow-up with PCP in 7-10 days or sooner if needed Follow up with PCP soon in regards to your blood pressure which is elevated above threshold for referral. Blood pressure above 120/80 may indicate pre- hypertension. 137/90 Patient Language: Burkinan Prescriptions: New azithromycin 500 mg tablet 500 mg PO DAILY 5 Days Qty: 5 0RF prednisone 50 mg tablet 50 mg PO DAILY Qty: 5 0RF Rx Instructions: take in the morning take with food albuterol sulfate 90 mcg/actuation HFA aerosol inhaler 2 puff inhalation QID PRN (Reason: shortness of breath or wheezing) Qty: 6.7 0RF No Action clindamycin phosphate 1 % gel TOPICAL rosuvastatin 20 mg tablet sertraline 100 mg tablet 100 mg PO DAILY bupropion HCl 300 mg tablet extended release 24 hr 300 mg PO DAILY Follow-up/Referrals: PHYSICIAN,CHIMNEY SWEEPER [Primary Care Provider] - Time of Disposition: 10:46 Quality [place] Coma Scale Eyes: Open Verbal: Oriented and Alert Motor: Follows Commands [place] Coma Total Score: 15
== END 2024-09-12 10:51 | disposition home or self-care (01) ==
PROVIDERS: Emergency Provider Registered Nurse
DX: J18.1 Lobar pneumonia, unspecified organism (principal); F41.8 Other specified anxiety disorders
CPT/HCPCS: 71046; 99213; G0463

== ENCOUNTER 2025-02-12 17:42 | Emergency (ER) | payer OTHER, SELFPAY ==
--- NOTE | 2025-02-12 17:47 | ED_ITS ---
HPI - Ear Problem General Chief complaint: Ear Stated complaint: Clogged Ear Time Seen by Provider: 02/12/25 17:45 History of Present Illness HPI Narrative: patient presents to the [facility] Care with complaints right ear pain that began patient also reports over the last 7-10 days she has had cough, sinus pain, headaches, scratchy throat, fatigue. Patient does report she has very long history of ear infections after /drink cold symptoms. Patient reports due to her blood pressure problem she is unable to take certain decongestants has been using Mucinex, Flonase, and Afrin with minimal relief of symptoms. Denies fever, chills, body aches, dizziness, drainage from the ear, difficulty swallowing, nausea, vomiting, diarrhea, shortness breath. Related Data Home Medications ?Medication ?Instructions ?Recorded ?Confirmed ?Last Taken ?Type bupropion HCl 300 mg 24 hr tablet, 300 mg PO DAILY 04/15/24 08/17/24 Unknown History extended release sertraline 100 mg tablet 100 mg PO DAILY 04/15/24 08/17/24 Unknown History rosuvastatin 20 mg tablet mg 09/12/24 Unknown History clindamycin 1.2 %-benzoyl peroxide topical 02/12/25 Unknown History 2.5 % topical gel with pump Allergies Allergy/AdvReac Type Severity Reaction Status Date / Time cephalexin (From Keflex) Allergy Swelling Verified 09/12/24 09:57 of Lip/Tongue/Throat Review of Systems Constitutional: Constitutional: Reports as per HPI, Denies chills, Reports fatigue, Denies fever(s) and Denies weakness ENT: Reports as per HPI, Denies dysphagia, Denies vertigo, Denies dizziness, Denies epistaxis, Reports nasal congestion and Denies sore throat Comments: Right ear pain, sinus pain nasal drainage Cardiovascular: Cardiovascular: Reports no additional cardiovascular complaints Respiratory: Respiratory: Reports as per HPI, Reports chest congestion, Reports cough, Denies dyspnea and Denies wheezing Gastrointestinal: Gastrointestinal: Reports no additional gastrointestinal complaints Genitourinary: Genitourinary: Reports no additional female genitourinary complaints Musculoskeletal: Musculoskeletal: Reports no additional musculoskeletal complaints Integumentary/Breasts: Skin/Breast: Reports system reviewed and no additional complaints, except as docu Neurologic: Reports as per HPI and Reports headache(s) Psychiatric: Psychiatric: Reports no additional psychiatric complaints Endocrine: Endocrine: Reports no additional endocrine complaints Hematologic/Lymphatic: Hematologic/Lymphatic: Reports no additional hematologic/lymphatic complaints Allergic/Immunologic: Allergic/Immunologic: Reports as per [facility] Past Medical History Medical History Otitis media Seasonal allergies Depression with anxiety Orthostatic hypotension Neurocardiogenic syncope Patient denies significant medical history Surgical History Surgical History H/O foot surgery cyst removed from the heel Family History Family History Mother Acute myocardial infarction Grandparent Acute myocardial infarction Diabetes mellitus Father Hypertension Sibling Hypertension Social History Social History Social History: the patient has no children. Her mother is a durable power [employer] attorney for healthcare. 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 She occasionally uses marijuana. She occasionally drinks an alcoholic beverage. She is a lifelong nonsmoker. She desires to be a full code. She has no children. Smoking status: Never smoker Alcohol intake: current Drinks per week: 1 Substance use: unknown Gender identity (if verbalized by the patient): Female Spiritual care concerns: No Exam Const: General: healthy appearing, no acute distress and alert Nutritional Appearance: well nourished Orientation/consciousness: patient oriented x3 Limitations: no limitations HENMT: Head: normal to inspection Ears: external ears normal and TM's abnormal bilaterally ( moderate erythema with bulging to right TM, left normal ) Face/Nose/Sinus: Normal external nose present Face and sinus: normal facial exam, sinuses nontender and sinus tenderness ( bilateral) maxillary Mouth: Yes Normal oral and palatal mucosa present Throat: posterior oropharynx normal Neck: Neck: no lymphadenopathy Resp: Effort & Inspection: normal respiratory effort Auscultation: clear to auscultation bilaterally Other: harsh cough noted Cardio: Rate: regular rate Rhythm: regular rhythm Skin: General skin exam: normal color Rashes: no rashes Wounds: no wounds Neuro: General: patient oriented x3 Speech: normal speech Gait exam (Neuro): Normal gait present Psych: Mental Status: mental status grossly normal Affect: normal affect Attitude: cooperative Course Course Level of Care: Express Care Visit Medical Decision Making MDM Narrative Medical decision making narrative: patient is infections. Noted last infection in August. With sinus involvement will treat with Augmentin. Patient agreeable with plan of care Discharge instructions reviewed with patient, as well as provided in writing per nursing staff. The instructions also include specific and strict return/GO TO THE ER as well as f/u information. All questions have been answered, and the patient deny any further questions with discharge and discharge plan. Differential Diagnosis Differential Diagnosis: sinusitis, otitis media, otitis externa, headache, allergic rhinitis, Discharge Plan Discharge Clinical Impression: Otitis media, Sinusitis, Seasonal allergies Patient Disposition: Home Condition: Stable Instructions: Antibiotic Form, Ear Infection (ED) Additional Instructions: continue [id number] medications as needed for symptoms. Speak with primary care physician about seen ear nose and throat- Dr. Shaheed Oakes- [facility] [phone] return to the office or speak with primary care if symptoms worsen including ear drainage or signs of rupture of Patient Language: Serbian Prescriptions: New amoxicillin-pot clavulanate 875-125 mg tablet 1 tablet PO Q12H Qty: 20 0RF No Action rosuvastatin 20 mg tablet albuterol sulfate 90 mcg/actuation HFA aerosol inhaler 2 puff inhalation QID PRN (Reason: shortness of breath or wheezing) Qty: 6.7 0RF clindamycin-benzoyl peroxide 1.2-2.5 % gel with pump TOPICAL sertraline 100 mg tablet 100 mg PO DAILY bupropion HCl 300 mg tablet extended release 24 hr 300 mg PO DAILY Follow-up/Referrals: PHYSICIAN,MARINE DRAFTER [Primary Care Provider] - Time of Disposition: 18:07
[2025-02-12 17:49] VITALS: BP 146/91; PULSE 85; RESP 18; TEMP 36.6; O2SAT 99
== END 2025-02-12 18:08 | disposition home or self-care (01) ==
PROVIDERS: Emergency Provider Nurse Practitioner Family
DX: H66.91 Otitis media, unspecified, right ear (principal); J32.9 Chronic sinusitis, unspecified; J30.2 Other seasonal allergic rhinitis; F41.8 Other specified anxiety disorders
CPT/HCPCS: 99213; G0463